=== PATIENT | female | born 1955 | race Caucasian/White ===

== ENCOUNTER 2017-11-08 19:04 | Emergency (ER) | payer MEDICARE, MEDICAID ==
[~2017-11-08] VITALS: Ht 154.9 cm; Wt 81.8 kg
[2017-11-08] MEDS ORDERED: HYDROmorphone 2 MG/ML, 1ML ONE (20:11)
[2017-11-08] MEDS ORDERED: METHYLNALTREXONE 12 MG/0.6 ML SQ ONE (20:30)
[2017-11-08] MEDS ORDERED: HYDROmorphone 1 MG/ML, 1ML IM ONE (20:30)
[2017-11-08 22:17] VITALS: BP 148/76
[2017-11-08] MEDS ORDERED: HYDR-3307 PO (22:17)
== END 2017-11-08 22:22 | disposition home or self-care (01) ==
LOC: ED 21:52
DX: K59.00 Constipation, unspecified (principal); M54.5 Low back pain
CPT/HCPCS: 74020; 96372; 99284; J1170